=== PATIENT | male | born 1950 | race Caucasian/White ===

== ENCOUNTER 2019-05-14 08:59 | Day surgery (SDC) | payer MEDICARE, OTHER ==
[2019-05-14] VITALS (9 sets, daily range): BP systolic 137–162; BP diastolic 82–95; PULSE 68–72; TEMP 98.5
[~2019-05-14] VITALS: Ht 152.4 cm; Wt 106.4 kg
[2019-05-14] MEDS ORDERED: BYSTOLIC10 MG PO (09:11)
[2019-05-14] MEDS ORDERED: CATAPRES0.2 MG PO (09:13)
[2019-05-14] MEDS ORDERED: LIPITOR 40MG TA40 MG PO (09:14)
[2019-05-14] MEDS ORDERED: TEKTURNA300 MG PO (09:16)
[2019-05-14] MEDS ORDERED: NORVASC 5MG5 MG/TAB PO (09:17)
[2019-05-14] MEDS ORDERED: PRINZIDE 25 MG-1 TAB PO (09:18)
[2019-05-14] MEDS ORDERED: SPIRIVA RE2.5 MCG/Ac IH (09:19)
[2019-05-14] MEDS ORDERED: RT ADVAIR 228 DISKUS IH (09:20)
[2019-05-14] MEDS ORDERED: TOPROL XL 25MG25 MG PO (09:20)
[2019-05-14] MEDS ORDERED: XARELTO20 MG PO (09:21)
[2019-05-14] MEDS ORDERED: ASPIRIN E.C. 8181 MG PO (09:21)
[2019-05-14] MEDS ORDERED: VITAMIN B125000 MCG PO (09:22)
[2019-05-14] MEDS ORDERED: VITAMIND3 5000 PO (09:27)
[2019-05-14] MEDS ORDERED: CIALIS20 MG PO (09:27)
[2019-05-14 09:50] LABS: INR 1.3 (0.8-3.0); PROTHROMBIN TIME 15.6 SECONDS (9.7-12.8)
[2019-05-14 09:52] LABS: PARTIAL THROMBOPLASTIN TIME 40.6 SECONDS (26.0-37.0)
[2019-05-14 09:55] LABS: HEMOGLOBIN 16.8 g/dl (13.5-18.0); MEAN CELL VOLUME 84 fl (80.0-100.0); MEAN CORPUSCULAR HEMOGLOBIN 27 pg (27.0-31.0); MEAN CORPUSCULAR HGB CONC 32 g/dl (33.0-37.0); MEAN PLATELET VOLUME 9.4 fl (7.4-10.4); PLATELET COUNT 191 K/mm3 (130-400); RED BLOOD COUNT 6.31 M/mm3 (4.20-5.60); REDCELL DISTRIBUTION WIDTH-CV 16.1 % (11.5-14.5)
[2019-05-14 09:58] LABS: CALCIUM 9.2 mg/dL (8.4-10.2); CREATININE, serum 1.08 (0.66-1.25); POTASSIUM 4.1 mmol/L (3.4-5.0)
[2019-05-14 09:59] LABS: HEMATOCRIT 52.8 % (42.0-52.0)
--- NOTE | 2019-05-14 10:37 | NUR ---
Initial visit; Patient and his thanked Skin Tanner for looking in on him prior to his surgical procedure. Skin Tanner offered prayer and God's blessings.
--- NOTE | 2019-05-14 11:44 | NUR ---
SEE MERGE DOCUMENTATION FOR MEDICATION ADMINISTRATION TIMES AND INTRA/POST PROCEDURE SEDATION ASSESSMENTS.
--- NOTE | 2019-05-14 12:15 | NUR ---
Back from [employer]. Alert and oriented. VSS. TRband to right wrist with 14 cc air CD&I.
--- NOTE | 2019-05-14 14:42 | NUR ---
Deflated TRband and applied pressure dressing. INT discontinued intact.
--- NOTE | 2019-05-14 14:52 | NUR ---
Discharge intructions given. Transferred to private car by
== END 2019-05-14 14:53 | disposition home or self-care (01) ==
LOC: COL.CAR 08:59
PROVIDERS: Internal Medicine Cardiovascular Disease
DX: I25.119 Atherosclerotic heart disease of native coronary artery with unspecified angina pectoris (principal); I10 Essential (primary) hypertension; E78.5 Hyperlipidemia, unspecified; F17.210 Nicotine dependence, cigarettes, uncomplicated; J44.9 Chronic obstructive pulmonary disease, unspecified; I73.9 Peripheral vascular disease, unspecified; Z79.82 Long term (current) use of aspirin; Z79.02 Long term (current) use of antithrombotics/antiplatelets; Z79.01 Long term (current) use of anticoagulants; Z85.828 Personal history of other malignant neoplasm of skin; Z86.718 Personal history of other venous thrombosis and embolism; Z82.49 Family history of ischemic heart disease and other diseases of the circulatory system
CPT/HCPCS: J1644; J2250; J3010; Q9967

== ENCOUNTER → 2020-01-30 | Outpatient (CLI) | payer MEDICARE, OTHER ==
[~2020-01-30] MED LIST: ASPIRIN E.C. 8181 MG PO; BYSTOLIC10 MG PO; CATAPRES0.2 MG PO; CIALIS20 MG PO; LIPITOR 40MG TA40 MG PO; NORVASC 5MG5 MG/TAB PO; PRINZIDE 25 MG-1 TAB PO; RT ADVAIR 228 DISKUS IH; SPIRIVA RE2.5 MCG/Ac IH; TEKTURNA300 MG PO; TOPROL XL 25MG25 MG PO; VITAMIN B125000 MCG PO; VITAMIND3 5000 PO; XARELTO20 MG PO
== END ==
LOC: COL.LAB 08:00 → EDSTATUS 02-04 06:00 → COL.CAR 02-04 06:00
DX: Z20.828 Contact with and (suspected) exposure to other viral communicable diseases (principal)

== ENCOUNTER → 2022-08-02 | Outpatient (CLI) | payer MEDICARE, OTHER ==
[~2022-08-02] VITALS: Ht 172.7 cm; Wt 102.2 kg
[~2022-08-02] MED LIST changes: +B-121000 MCG PO; +CARDIZEM LA180 MG PO; +COZAAR 25MG25 MG/TAB PO; +ELIQUIS 5MG PO; +GLUCOPHAGE500 MG/TAB PO; +K-DUR20 MEQ PO; +LASIX 40MG TABL40 MG PO; +PREVAGEN PO; +PROVENTIL0.09 MG/A1 IH
[2022-08-02 12:43] VITALS: BP 142/91; PULSE 107; TEMP 97.6
[2022-08-02 14:45] VITALS: BP 128/78; PULSE 92
== END ==
LOC: COL.RAD 11:56
DX: R91.8 Other nonspecific abnormal finding of lung field (principal); M54.2 Cervicalgia; R22.1 Localized swelling, mass and lump, neck
CPT/HCPCS: 32108